=== PATIENT | male | born 1950 ===

== ENCOUNTER 2017-06-24 06:22 | Day surgery (SDC) | payer OTHER ==
[2017-06-24] VITALS (7 sets, daily range): BP systolic 106–133; BP diastolic 66–77
[~2017-06-24] VITALS: Ht 188 cm; Wt 81.6 kg
[2017-06-24] MEDS ORDERED: LIVALO2 MG PO (06:47)
[2017-06-24] MEDS ORDERED: METOPROLOL SUCC50 MG ORAL (06:47)
[2017-06-24] MEDS ORDERED: ASPIRIN325 MG ORAL (06:47)
[2017-06-24] MEDS ORDERED: METFORMIN HCL500 M5 PO (06:47)
[2017-06-24] MEDS ORDERED: FARXIGA10 MG PO (06:47)
[2017-06-24] MEDS ORDERED: VITAMIN D1000 UNI1 ORAL (06:47)
[2017-06-24] MEDS ORDERED: DUEXIS 800-26.1 EACH PO (06:47)
--- NOTE | 2017-06-24 07:42 | Anethesia Preoperative Eval ---
Anesthesia Pre-op PMH/ROS General Date of Evaluation: Jun 24, 2017 Time of Evaluation: 07:42 Anesthesiologist: manas ASA Score: ASA 3 Mallampati Score Class I : Soft palate, uvula, fauces, pillars visible Class II: Soft palate, uvula, fauces visible Class III: Soft palate, base of uvula visible Class IV: Only hard plate visible Mallampati Classification: Class II Surgeon: mitchell Diagnosis: abd pain Surgical Procedure: egd/colonoscopy Anesthesia History: none Social History: smoking - nonsmoker Family History: no anesthesia problems Allergies: Coded Allergies: No Known Allergies (Unverified , 06/24/17) Medications: see eMAR Past Medical History Cardiovascular: Reports: other Endocrine: Reports: DM Hematology/Immune: Reports: other - cancer Musculoskeletal/Integumentary: Reports: OA Anesthesia Pre-op Phys. Exam Physician Exam Last Vital Signs Date Time Temp Pulse Resp B/P (MAP) Pulse Ox O2 Delivery O2 Flow Rate FiO2 06/24/17 07:02 98.3 66 18 133/73 96 Room Air Constitutional: NAD Neurologic: CN 2-12 intact Cardiovascular: RRR Respiratory: CTA Gastrointestinal: S/NT/ND Airway Exam Mallampati Score: Class II MO: full Neck: supple TMD: 2fb ROM: full Anesthesia Pre-op A/P Risk Assessment & Plan Assessment: asa3 Plan: mac Status Change Before Surgery: No Pre-Antibiotics Drug: ARA Goode Jun 24, 2017 07:42
--- NOTE | 2017-06-24 07:43 | Short Stay Surgery H&P ---
History of Present Illness History of Present Illness Chief Complaint History of colon cancer and abdominal pain/evaluation for polyps/recurrence of the colon CA. HPI Luke Coleman is a 67 year old male who was admitted on for follow up os the colon cancer screening Patient History Allergies: Coded Allergies: No Known Allergies (Unverified , 06/24/17) PAST MEDICAL HISTORY: (1) Hyperlipidemia (2) Diabetes Past Surgeries: Social History: Medication History Scheduled Aspirin* (Aspirin*), 325 MG ORAL DAILY, (Reported) Cholecalciferol (Vitamin D3)* (Vitamin D*), 500 MG ORAL DAILY, (Reported) Dapagliflozin Propanediol (Farxiga), 10 MG PO DAILY, (Reported) Ibuprofen/Famotidine (Duexis 800-26.6 Mg Tablet), 1 EACH PO NEEDED, (Reported ) Metformin HCl (Metformin HCl ER), 500 MG PO BID, (Reported) Metoprolol Succinate* (Metoprolol Succinate*), 50 MG ORAL BID, (Reported) Pitavastatin Calcium (Livalo), 2 MG PO DAILY, (Reported) Review of Systems Cardiovascular: Reports: no symptoms Respiratory: Reports: no symptoms Skeletal: Reports: no symptoms Gastrointestinal: Reports: no symptoms Genitourinary: Reports: no symptoms Neurologic: Reports: no symptoms Endocrine: Reports: no symptoms Physical Exam Vital Signs Last Vital Signs Date Time Temp Pulse Resp B/P (MAP) Pulse Ox O2 Delivery O2 Flow Rate FiO2 06/24/17 07:02 98.3 66 18 133/73 96 Room Air Skin: normal HENT: normal Heart: normal Lungs: normal Abdomen: normal Extremities: normal Genitourinary: normal Plan Plan of Care Upper and lower GI endoscopies. Preop Interventions None. Summary of Findings See the reports. Final Diagnosis: Attestation Are the patient's medical conditions optimized for surgery? Attestation Response: yes LIAM MARX Jun 24, 2017 07:43
--- NOTE | 2017-06-24 07:44 | Pre-Procedure Note/Attestation ---
Pre-Procedure Note/Attestation Complete Prior to Procedure Planned Procedure: left Procedure Narrative: The endoscopic examination of the upepr and the lower GI tract. Indications for Procedure Pre-Operative Diagnosis: R/O Gastritis/colon cancer/polyps. Attestation I attest that I discussed the nature of the procedure; its benefits; risks and complications; and alternatives (and the risks and benefits of such alternatives ), prior to the procedure, with the patient (or the patient's legal fundraising sale representative). I attest that, if there was a reasonable possibility of needing a blood transfusion, the patient (or the patient's legal fundraising sale representative) was given the [facility] standardized written summary, pursuant to the [place] Time Blood Safety Act ([place] Health and Safety Code # 1645, as amended). I attest that I re-evaluated the patient just prior to the surgery and that there has been no change in the patient's H&P, except as documented below: FRANCSICO J,SAID Jun 24, 2017 07:44
[2017-06-24] MEDS ORDERED: Atropine Inj 1mg/10ml Syr IV PRN (08:00)
[2017-06-24] MEDS ORDERED: fentaNYL 100 mcg/2 mL IV PRN (08:00)
[2017-06-24] MEDS ORDERED: Lidocaine 1% MPF 10mg/ml 5ml ONE (08:00)
[2017-06-24] MEDS ORDERED: Midazolam 2mg/2ml Inj IVP PRN (08:00)
[2017-06-24] MEDS ORDERED: DiphenhydrAMINE 50mg/ml Inj IVP PRN (08:00)
[2017-06-24] MEDS ORDERED: Propofol 200mg/20ml IV ONE (08:00)
[2017-06-24] MEDS ORDERED: D5NS 1000ml IV ONE ×2 (08:00)
[2017-06-24] MEDS ORDERED: D5NS 1,000 ML IV SCH (08:30)
--- NOTE | 2017-06-24 08:37 | Endoscopy Procedure Note ---
Endoscopy Procedure Note Indication for Procedure: History of colon cancer and polyps for screening Procedures Performed: EGD - Small hiatal hernia. Moderate gastritis of the prepyloric area biospied. Incidental finding of 2mm hyperplastic polp found over greator curvator midbody of stomach removed by cold biopsy forceps., colonoscopy - Highly redundant colon. Small internal hemorrhoids. No evidence of polyps/tumors etc. as examined upto the anastomatic area. Specimen: yes Pt Tolerated Procedure Well: Yes Estimated Blood Loss: none Anesthesiologist: Dr. Nelson. Anesthesia: moderate sedation Implant(s) used?: No 50 yrs or older w/o bx or poly: Yes 10yrs. F/U not recommended: Yes 10 yrs. F/U needed: Yes 18 years or older w/prev. colo: Yes Med reason:<3 yrs.: System Reason:<3 yrs.: LIAM MARX Jun 24, 2017 08:37
--- NOTE | 2017-06-24 08:38 | Discharge Instructions ---
Discharge Instructions Discharge Instructions Follow up with: See the doctor after two weeks in the office For Congestive Heart Failure Reminder Report to your physician any weight gain of 5 pounds or more in one week. LIAM MARX Jun 24, 2017 08:38
--- NOTE | 2017-06-24 16:45 | Pre-op HX & Phy Repo 2 SIG ---
DATE OF ADMISSION: 06/24/2017 REFERRAL SOURCE: This patient was referred by [employer]. 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 The applicant at this point is being seen prior to undergoing the procedures of upper and lower GI endoscopy, for which he has been scheduled to proceed with further evaluation of any recurrence of cancer in the colon and also the gastric area. At this point, the patient does not have any symptoms in terms of nausea, vomiting, hematemesis, melena, hematochezia, weight loss, etc., though he does have occasional nonspecific abdominal pain. The patient denies taking any nonsteroidal anti-inflammatory agents except occasionally as needed along with acid suppressors. He does have occasional regurgitation. He denies having had any history of gastritis, peptic ulcer disease, weight loss, etc. As I mentioned, he was working for the [employer] of [employer] going back as he started his work in 1976 and worked up to 2007 when he was found to have the symptoms of colon cancer and subsequently, he retired. PAST MEDICAL HISTORY: Borderline diabetes and hyperlipidemia. SURGICAL HISTORY: and partial colectomy for the colon cancer as mentioned. MEDICATIONS: He does take some medications for control of sugar such as metformin and anti-lipid medication along with aspirin. ALLERGIES: None significant. HABITS: The applicant occasionally drinks two beers per week, but does not smoke cigarettes. FAMILY HISTORY: Not significant. REVIEW OF SYSTEMS: Basically history of present illness. PHYSICAL EXAMINATION: GENERAL: Reveals an alert, oriented, and very pleasant gentleman, does not seem to be in any acute distress. VITAL SIGNS: All stable. HEENT: Normocephalic. Pupils equal in size and reactive to light and accommodation. No visible jaundice. Buccal cavity, tongue midline, well hydrated. No ulcers. NECK: Supple. No JVD, thyromegaly, or adenopathy. CHEST: Clear to auscultation and percussion. No rales or rhonchi. HEART: S1 and S2 normal. Regular rhythm. No gallops or murmur. ABDOMEN: Soft, very minimally tender, but no hepatosplenomegaly. Bowel sounds are present. No masses. No percussion tenderness. EXTREMITIES: Unremarkable. PRELIMINARY IMPRESSION: 1. History of colon cancer with metastatic lesions, under control at this time without any evidence of recurrence. 2. Borderline diabetes. 3. Hyperlipidemia. 4. Hypertension. RECOMMENDATIONS: The applicant seems to be stable at this time to undergo the procedure of upper and lower GI endoscopy, for which he has been scheduled. He understands the risks and benefits and will sign the consent. Said Ellen Majano DR: TONIA JOB#: [id number] CC:
--- NOTE | 2017-06-24 17:00 | Procedure Note ---
DATE OF PROCEDURE: 06/24/2017 SURGEON: Gómez Majano M.D. REFERRED BY: [facility]ian Shi Dai. PROCEDURE: Esophagogastroduodenoscopy with biopsy. PREOPERATIVE DIAGNOSIS: Abdominal pain, rule out gastritis, gastric cancer, etc. POSTOPERATIVE DIAGNOSES: 1. Moderate gastritis of prepyloric area, which was biopsied, looked benign. 2. Small hiatal hernia. 3. Incidental finding of 2 mm hyperplastic polypoid lesion over the greater curvature midbody of the stomach, which was totally removed with cold biopsy forceps, looked benign. MEDICATION USED: Per Dr. Nelson, anesthesiologist. INSTRUMENT: GIF Olympus video upper GI endoscope. DESCRIPTION OF PROCEDURE: The patient, after arriving endoscopy unit, was told about risks and benefits of the procedure, which he accepted and signed the informed consent. He was then put in the left lateral decubitus position. After adequate IV sedation, the scope was gently passed through the cricopharyngeal area, was lodged into the upper esophagus, and gradually advanced towards gastroesophageal junction. The entire length of the esophagus looked completely normal. There was no evidence of varices, inflammatory process, ulceration, stricture, etc. GE junction also looked normal and no Salinas's, but there was evidence of a small hiatal hernia of no great significance. There was no ulceration, dissection, nor stricture. The scope was then guided into the stomach. Gastric cavity was gradually distended with insufflation of air. The areas of the fundus and the body and the antrum were examined and the findings were incidental with finding of 2 mm polypoid lesion, which was quite soft and consistent with hyperplastic polyp, possibly fundic type, located over the mid body of greater curvature, part of the stomach, which was totally removed with cold biopsy forceps. At this time, with advancing the scope towards the antrum and prepyloric area, it was seen that there was moderate inflammatory process with edema and erythema of the prepyloric area at 1-2 o'clock. At this point, this area was biopsied and the specimen was sent to pathology lab. Subsequently, the scope was passed through normal looking pylorus. First and second portions of duodenum were found to be completely normal. The scope was then pulled out into the stomach and retroflexion maneuver was applied. The area of the gastroesophageal junction was examined in a closer fashion, which did not add any pathology. Finally, the scope was pulled out and the procedure was terminated. The patient tolerated the procedure well. Said Ellen Majano DR: PRINCE JOB#: [id number] CC:
--- NOTE | 2017-06-24 17:32 | Procedure Note ---
DATE OF PROCEDURE: 06/24/2017 SURGEON: Doug Majano M.D. REFERRED BY: [facility] [address]. PROCEDURE: Total colonoscopy. PREOPERATIVE DIAGNOSIS: History of colon cancer with metastases, rule out recurrence. POSTOPERATIVE DIAGNOSES: Highly redundant colon with minimal internal hemorrhoids, otherwise completely normal up to the anastomotic area with a history of partial colectomy. MEDICATION USED: Per Dr. Nelson, anesthesiologist. INSTRUMENT: GIF Olympus video colonoscope. DESCRIPTION OF PROCEDURE: The patient, after arriving endoscopy unit, was told about risks and benefits of the procedure, which he accepted and signed informed consent. At this time, the scope was introduced into the rectum. A retroflexion maneuver was applied here, which revealed evidence of very minimal internal hemorrhoid of no great significance, no friability. The rest of the rectum looked completely normal. At this point, the scope was passed through highly redundant left colon, which took significant amount of time to pass through. However, there was no any evidence of any pathology such as tumors, polyps, ulceration, stricture, etc. Gradually, the scope was advanced towards the splenic flexure. Then, it was guided into transverse colon and finally to the right side of the colon as much as it could be advanced, which reached towards the anastomotic area. There was no any evidence of recurrence of the anastomotic area and as I mentioned, there was no polyps or tumor found in the whole total colon as examined. The colon cleanup was moderate and still there was some liquidy stool along the colon. However, the examination done satisfactorily. At this point, upon reaching to the anastomotic area, within 7 minutes, the scope was gradually pulled out and reevaluation of the colon did not reveal any other abnormalities. At this time, the procedure was terminated and the patient tolerated the procedure well and left the endoscopy room in a good condition. Said Ellen Majano DR: Ann Marie JOB#: [id number] CC:
== END 2017-06-24 09:50 | disposition home or self-care (01) ==
LOC: SDS 06:22
DX: K29.50 Unspecified chronic gastritis without bleeding (principal); K44.9 Diaphragmatic hernia without obstruction or gangrene; K31.9 Disease of stomach and duodenum, unspecified; E78.5 Hyperlipidemia, unspecified; K64.8 Other hemorrhoids; I10 Essential (primary) hypertension; E11.9 Type 2 diabetes mellitus without complications; Z79.82 Long term (current) use of aspirin; Z85.038 Personal history of other malignant neoplasm of large intestine; Z90.49 Acquired absence of other specified parts of digestive tract; Z79.84 Long term (current) use of oral hypoglycemic drugs
CPT/HCPCS: 43239; 45378; 82962; J2704; 94003; 94150